=== PATIENT | female | born 1980 | race Caucasian/White ===

== ENCOUNTER → 2020-04-25 13:13 | Outpatient (CLI) | payer MEDICAID, SELFPAY ==
[2020-05-02 20:38] LABS: HPV Reflexed? NOT INDICATED
== END ==
PROVIDERS: Visit Provider Obstetrics & Gynecology
DX: Z12.4 Encounter for screening for malignant neoplasm of cervix (principal)
CPT/HCPCS: 88175; G0145

== ENCOUNTER 2024-10-16 10:20 | Emergency (ER) | payer SELFPAY ==
[2024-10-16 10:21] VITALS: BP 150/99; PULSE 107; RESP 15; TEMP 36.8; O2SAT 96; BMI 44.3
--- NOTE | 2024-10-16 11:03 | CT_ITS ---
PROCEDURE: SPINE CERVICAL WITHOUT CONTRAS 10/16/2024 REASON FOR EXAM: INJURY/PAIN TECHNIQUE: CT of cervical spine was performed without IV contrast. Multiplanar reformats were generated. One or more dose reduction techniques were used (e.g., Automated exposure control, adjustment of the mA and/or kV according to patient size, use of iterative reconstruction technique COMPARISON: None. RADIATION DOSE SUMMARY: CTDlvol: 24.36 mGy DLP: 564.25 mGycm (not including concurrent CT head). FINDINGS: Exam limited by photon starvation likely related of the shoulders at/below the level of C5-C6. No cervical spinal fracture or acute malalignment identified. Vertebral body heights are preserved. Straightening and mild reversal of the normal cervical lordosis, may be positional, related to pain/muscular spasm, or degenerative. Multilevel spondylosis greatest from C5-C7. Bony foraminal stenoses up to at least moderate on the left at C5-C6. Extremely faintly visible spinal canal stenoses up to at least moderate/severe at C3-C4 and C4-C5 likely mostly related to disc bulging/protrusion, suboptimally delineated by CT. Paraspinal soft tissues grossly unremarkable. CT/Spine Cervical without Contras IMPRESSION: 1. No cervical spinal fracture or acute malalignment identified. 2. Multilevel spondylosis as above, suboptimally delineated by CT. At least mo derate/severe multilevel spinal canal stenoses suggested. Consider outpatient MRI as indicated. 3. Additional description as above. Reading Location: [id number]
--- NOTE | 2024-10-16 11:04 | RAD_ITS ---
PROCEDURE: HAND MIN 3 VIEWS ([facility]), 10/16/2024 REASON FOR EXAM: INJURY/PAIN TECHNIQUE: AP, lateral, and oblique views of the left hand were obtained. COMPARISON: None FINDINGS: Fracture/dislocation: None visible. Joint space(s): Preserved. Soft tissues: Unremarkable. Foreign bodies: None visible. Bone mineralization: Unremarkable. RAD/Hand Min 3 Views IMPRESSION: 1. No visible acute displaced fracture. 2. Additional description as above. Reading Location: [id number]
--- NOTE | 2024-10-16 11:04 | RAD_ITS ---
PROCEDURE: KNEE 4 OR MORE VIEWS ([facility]), 10/16/2024 REASON FOR EXAM: INJURY/PAIN TECHNIQUE: AP, cross-table lateral, AP tunnel view, and sunrise views of the right knee were obtained. COMPARISON: None FINDINGS: Fracture/dislocation: None visible. Joint space(s): Minimal loss of medial compartment joint space with tiny femoral osteophyte. Soft tissues: Unremarkable. Foreign bodies: None visible. Bone mineralization: Unremarkable. RAD/Knee 4 or More Views IMPRESSION: 1. No visible acute displaced fracture. 2. Additional description as above. Reading Location: [id number]
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
[2024-10-16] MEDS: Ondansetron 4 MG/2 ML Vial IV (11:15)
[2024-10-16] MEDS: fentaNYL 100 MCG/2 ML Ampul 50 MCG IV (11:17)
[2024-10-16] MEDS: Diphth,Pertuss(Acell),Tet Vac 0.5 ML Vial IM (11:23)
--- NOTE | 2024-10-16 11:32 | CT_ITS ---
EXAM: BRAIN/HEAD WITHOUT CONTRAST CLINICAL HISTORY: HEAD TRAUMA COMPARISON: None. TECHNIQUE: CT head without contrast, with sagittal and coronal reconstructed images FINDINGS: Mild mucosal thickening is seen of the bilateral ethmoid and maxillary sinuses. Bilateral maxillary sinus air-fluid levels are noted, concerning for acute paranasal sinusitis. The remaining paranasal sinuses appear clear, as do the mastoid air cells. No fracture site is seen. No intracranial hemorrhage, mass, or mass effect is noted. Ventricles appear symmetric and within the normal range. No extra-axial fluid collection is seen. No orbital pathology is noted. CT/Brain/Head without Contrast IMPRESSION: 1. Findings concerning for acute paranasal sinusitis. 2. No intracranial hemorrhage or additional acute process is seen. Reading Location: [id number]
[2024-10-16 12:16] VITALS: BP 168/111; PULSE 104
[2024-10-16] MEDS: Lidocaine/Epi/Tetracaine 50 ML 1 APPLIC TOPICAL (13:26)
[2024-10-16 14:00] VITALS: BP 118/86
[2024-10-16] MEDS: Lidocaine 1% /Epi 1:100 (20ml) 20 ML Vial INFILT (14:09)
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
[2024-10-16 16:00] VITALS: BP 126/86; PULSE 106
[2024-10-16] MEDS: Ibuprofen 600 MG Tablet PO (16:03)
[2024-10-16 16:33] VITALS: BP 126/86; PULSE 106; RESP 16; TEMP 36.8; O2SAT 96
== END 2024-10-16 16:48 | disposition home or self-care (01) ==
PROVIDERS: Emergency Provider Emergency Medicine; Visit Provider Emergency Medicine
DX: S01.01XA Laceration without foreign body of scalp, initial encounter (principal); S60.222A Contusion of left hand, initial encounter; S80.01XA Contusion of right knee, initial encounter; S80.211A Abrasion, right knee, initial encounter; S60.415A Abrasion of left ring finger, initial encounter; S60.417A Abrasion of left little finger, initial encounter; V49.40XA Driver injured in collision with unspecified motor vehicles in traffic accident, initial encounter; Z23 Encounter for immunization
CPT/HCPCS: 12004; 70450; 72125; 73130; 73564; 90715; 96374; 96375; 99285; A4216; J2405